=== PATIENT | male | born 1975 | race African-American/Black ===

== ENCOUNTER 2019-02-01 06:15 | Inpatient (IN) | payer SELFPAY ==
[~2019-02-01] VITALS: Ht 182.9 cm; Wt 130.2 kg
[~2019-02-01 06:15] MED LIST: ZES10 PO
[2019-02-01 06:25] VITALS: Ht 182.9 cm; Wt 130.2 kg
--- NOTE | 2019-02-01 08:05 | NUR ---
PT WALKED IN TO ER BED 7 FOR C/O LEFT ANKLE PAIN X 4 DAYS, STATES "IT'S MY GOUT" DENIES ACUTE INJURY OR EATING RED MEAT/SEAFOOD FOR A WHILE. SLIGHT SWELLING NOTED, PEAL PULSES PRSENT. STATES HE TAKES INDOMETHACIN PRESCRIBED. STATES HE TAKES HIS ANTIHYPERTENSIVES LASTTAKEN THIS AM, CURENTLY BP 151/104. PAIN LEVEL 9/10. DR JOLLY IN ROOM FOR EXAM. TEACHING DONE ON BP CONTROL AND THENEED FOR A BPMACHINE AT HOME. WAIITNG FOR FURTHER ORDERS. SAFETY PRECAUTIONSIN PLACE, WILLCONT TO MONITOR. RESP EVEN AND UNALBORED, IN NAD. DENIES CP OR SOB.
--- NOTE | 2019-02-01 08:33 | NUR ---
MEDICATED ORDERED, WILL MONITOR FOR RELIEF.
[2019-02-01 09:01] LABS: BASOPHIL % 0.7 % (0-2); PLATELET COUNT 344 x10^3mcL (130-400); RED CELL DISTRIBUTION WIDTH 14.5 % (11.5-14.5)
[2019-02-01 09:08] LABS: CALCIUM 8.1 mg/dL (8.5-10.1); CARBON DIOXIDE 30.1 mmol/L (21-32); CREATININE SERUM 3.7 mg/dL (0.7-1.3)
[2019-02-01 09:13] LABS: BILIRUBIN TOTAL 0.26 mg/dL (0.20-1.00); TOTAL PROTEIN, SERUM 7.5 g/dL (6.4-8.2)
[2019-02-01 09:14] LABS: ALBUMIN 3.1 g/dL (3.4-5.0)
--- NOTE | 2019-02-01 09:55 | NUR ---
DR AMEZQUITA INFORMED OF CRITICAL TROPONIN 0.142
[2019-02-01] MEDS ORDERED: HYDRALAZINE HCL25 MG (09:58)
[2019-02-01] MEDS ORDERED: METOPROLOL SUCC50 M2 PO (09:58)
[2019-02-01 11:49] LABS: microscopic required? YES; urine erythrocyte NEGATIVE (NEGATIVE)
--- NOTE | 2019-02-01 12:02 | NUR ---
SECOND SANDWICH AND JUICE GIVEN REQUESTED. PT SITTING UP IN BED, IN NAD.
[2019-02-01 12:23] LABS: AMPHETAMINE QUAL UR NONE DETECTED (See below)
--- NOTE | 2019-02-01 13:38 | NUR ---
REPORT GIVEN TO ALMAS LINARES, UPDATED ON STATUS, LABS AND VITALS. PT STABLE FOR TRANSFER. ALL BELONGINGS WITH PT.
[2019-02-01 14:31] VITALS: BP 183/116
--- NOTE | 2019-02-01 14:41 | NUR ---
RECEIVED PT FROM ER, PT ADMIT FOR UNCONTROLLED B/P, NONSTEMI, PT IS A/O X4, VERBAL RESPONSIVE, ABLE TO TELL WHAT HE NEEDS. LUNG SOUND CLEAR BILATERAL, NO COUGH, NO SOB, PT IS ON TELE 6, SBR, WITH PVC, PT DENY ANY CHEST PAIN, BOWEL SOUND PRESENT ALL 4 QUADRANTS, NO DISTENTION, NO TENDER. PEDAL PULSE PRESENT BOTH FEET, +1 EDEMA BLE, AND +1 LEFT ANKLE. IV AT LEFT HAND, NO LEAKING, NO INFILTRATION. ALL ADLS ASSIST, ALL NEED MET, CALL LIGHT IN REACH, WILL CONTINUE TO MONITOR.
[2019-02-01 16:54] VITALS: BP 138/87
--- NOTE | 2019-02-01 18:00 | NUR ---
TROPONIN LEVEL= 0.120. DR. CÉSAR MILAN. PT. DENIES ANY CHEST PAIN AT THIS TIME.
--- NOTE | 2019-02-01 18:15 | NUR ---
REMAINS IN STABLE CONDITION AT THIS TIME. WILL CONTINUE TO MONITOR.
--- NOTE | 2019-02-01 18:40 | NUR ---
DR. KIMBALL IN THE NURSING STATION. TROPONIN LEVEL (0.120) WAS REPORTED TO DR. KIMBALL. NO FURTHER ORDER RECEIVED AT THIS TIME.
--- NOTE | 2019-02-01 19:56 | NUR ---
PT. AWAKE, ALERT, ORIENTED X4. SITTING UP IN BED. DENIES HEADACHE OR DIZZINESS. BREATH SOUNDS CLEAR THROUGHOUT LUNG SOLIS, RESP. EVEN, UNLABORED,.NO SOB NOTED. PT. ON RA. NSR ON TELE #6. MODERATE PULSES TO BLE. +1 EDEMA NOTED. LT. ANKLE MORE EDEMATOUS THAN RLE. C/O PAIN WITH MOVEMENT AND WALKING/PRESSURE ON FEET. ABD. SOFT AND ROUND, BOWEL SOUNDS ACTIVE. DENIES ABD. PAIN, DENIES NAUSEA. IV SITE INTACT. CALL LIGHT WITHIN REACH.
[2019-02-01 20:59] VITALS: BP 125/88
--- NOTE | 2019-02-01 23:57 | NUR ---
PT. SLEEPING. NO C/O PAIN OR REQUEST FOR PAIN MEDICATION THUS FAR. CALL LIGHT REMAINS WITHIN REACH.
--- NOTE | 2019-02-02 05:20 | NUR ---
PT. AWAKE, SITTING UP AT BEDSIDE. DENIES ANY PAIN OR DISCOMFORT IN BLE AT THIS TIME. BLOOD PRESSURE ELEVATED, 144/103. EALRY DOSE OF NORVASC PO GIVEN. WILL MONITOR.
[2019-02-02 05:33] VITALS: BP 144/103
--- NOTE | 2019-02-02 06:14 | NUR ---
PT.'S BLOOD PRESSURE RECHECKED AFTER RECEIVING NORVAASC 5 MG PO. BLOOD PRESSURE 152/104. DR. WHATLEY MADE AWARE OF PRIOR BP LEVEL AND ABOUT PT. RECEIVING NORVASC EALRY. DR. WHATLEY ALSO MADE AWARE OF TROPONIN LEVEL OF 0.129. NO C/O CHESTPAIN THROUGHOUT NIGHT, SB ON MONITOR. DENIES ANY DISCOMFORT IN BLE AT THIS TIME. CALL LIGHT WITHIN REACH. WILL ENDORSE PT. CARE TO INCOMING NURSE.
--- NOTE | 2019-02-02 07:10 | NUR ---
RECEIVED PT FROM SAMANTA RN. PT AA/OX4 SITTING AT SIDE OF BED. REPORTS INTERMITTENT SOB WITH EXERTION, DENIES SOB AT THIS TIME. RR EVEN/UNLABORED. CHEST EXPANSION SYMMETRICAL. DENIES CHEST PAIN AT THIS TIME. NO N/V. NO BLAKE. NO DIZZINESS. PT CALM/COOPERATIVE. IV WNL TO LH, IV FLUIDS FLOWING. PT CALM/COOPERATIVE. INSTRUCTED TO USE CALL LIGHT TO CALL FOR ASSISTANCE PRN. VERBALIZED UNDERSTANDING. WILL CONTINUE TO MONITOR.
[2019-02-02 07:17] LABS: BASOPHIL % 1.3 % (0-2); PLATELET COUNT 359 x10^3mcL (130-400)
[2019-02-02 07:42] LABS: CALCIUM 8.5 mg/dL (8.5-10.1); CARBON DIOXIDE 27.2 mmol/L (21-32); CREATININE SERUM 3.5 mg/dL (0.7-1.3); MAGNESIUM 2.1 mg/dL (1.8-2.4); PHOSPHOROUS 3.8 mg/dL (2.5-4.9); POTASSIUM SERUM 4.2 mmol/L (3.5-5.1)
[2019-02-02 07:59] LABS: RED CELL DISTRIBUTION WIDTH 14.6 % (11.5-14.5)
[2019-02-02 09:07] VITALS: BP 146/93
--- NOTE | 2019-02-02 10:30 | NUR ---
PT SITTING AT SIDE OF BED. AA/OX4. NO S/S OF ACUTE DISTRESS. DENIES PAIN AT THIS TIME. NO SOB ON ROOM AIR. NO CHEST PAIN. CALM/COOPERATIVE. IV WNL TO LH. IV FLUIDS FLOWING. BED IN LOW POSITION. CALL LIGHT WITHIN REACH. WILL CONTINUE TO MONITOR.
--- NOTE | 2019-02-02 10:39 | NUR ---
Discount pharmacy card and list to low cost medical clinics given to patient by Sidney Vann.
[2019-02-02 12:45] VITALS: BP 152/102
--- NOTE | 2019-02-02 12:45 | NUR ---
BP ELEVATED, PT DENIES BLAKE. NO CHEST PAIN. DR. GAONA MADE AWARE. BP 152/102, HR RANGES BETWEEN 57-61. NO S/S OF ACUTE DISTRESS. WILL CONTINUE TO MONITOR.
[2019-02-02 17:47] VITALS: BP 154/104
--- NOTE | 2019-02-02 18:20 | NUR ---
PT SITTING AT SIDE OF BED. AA/OX4. DENIES PAIN. NO SOB ON ROOM AIR. DENIES CHEST PAIN. CALM/COOPERATIVE. BP ELEVATED, DR. GAONA AWARE. PT SCHEDULED TO RECEIVE BP MED AT 2100. NO BLAKE. NO DIZZINESS. NO N/V. NO S/S OF ACUTE DISTRESS. IV WNL TO LH, RUNNING AT 10CC/HR PER ORDER. PATENT. SIDE RAILS UP X2. BED IN LOW POSITION. CALL LIGHT WITHIN REACH. WILL ENDORSE TO ONCOMING SHIFT.
[2019-02-02 19:24] VITALS: BP 158/108
--- NOTE | 2019-02-02 19:54 | NUR ---
RECEIVED PT SITTING ON THE EDGE OF THE BED AAOX4, 2+EDEMA NOTED BILAT LOWER EXTR NOTED PEDAL PULSE +. PT DENY PAIN AT THE MOMENT , ON TELE NUMBER 6 THAT SHOWS NSR HR 68. PIV TO LH INTACT INFUSING WELL , NS AT 10ML/HR . CALL LIGHT WITHIN PT'S REACH , WILL CON;T TO MONITOR AND ASSIST PT WITH CARE .
--- NOTE | 2019-02-02 20:47 | NUR ---
BP 158/108 SCHEDULE MEDS GIVEN , WILL RE-CHECK BP IN 1HR .
[2019-02-02 23:00] VITALS: BP 136/95
--- NOTE | 2019-02-03 03:40 | NUR ---
I HAVE REVIEWED THE DATA COLLECTION BY [employer] (NAME):LAYO MONTILLA ENTERED ON (DATE/TIME): I CONCUR WITH THE DATA AND ANY EXCEPTIONS OR COMMENTS ARE LISTED BELOW:
[2019-02-03 04:56] VITALS: BP 159/108
--- NOTE | 2019-02-03 05:44 | NUR ---
BP 159/108 AMLODIPINE 5MG GIVEN ORDERED , DR SMALLWOOD AWARE
[2019-02-03 07:17] LABS: BASOPHIL % 0.9 % (0-2); PLATELET COUNT 374 x10^3mcL (130-400); RED CELL DISTRIBUTION WIDTH 14.4 % (11.5-14.5)
[2019-02-03 07:31] LABS: CALCIUM 8.6 mg/dL (8.5-10.1); CREATININE SERUM 3.3 mg/dL (0.7-1.3)
--- NOTE | 2019-02-03 07:36 | NUR ---
RECEIVED AWAKE, ALERT AND ORIENTED. SITTING AT THE EDGE OF THE BED. NO RESP. DISTRESS NOTED. NO C/O PAIN OR DISCOMFORT. BP SLIGHTLY ELEVETED. PT MEDICATED FOR HIGH BP BY NOC SHIFT NURSE. WILL CONT TO MONITOR.IVF INFUSING TO KVO AND SITE CLEAR. CALL LIGHT WITHIN REACH. WILL CONTNUE WITH PLAN OF CARE.
[2019-02-03 07:58] VITALS: BP 145/98
[2019-02-03] MEDS ORDERED: LIPI10 PO (09:17)
[2019-02-03] MEDS ORDERED: NOR5 PO (09:17)
[2019-02-03] MEDS ORDERED: GOOD SENSE ASPI81 M3 PO (09:19)
--- NOTE | 2019-02-03 12:01 | NUR ---
AM ROUNDS DONE BY DR. FUNG AND MEDICAL TEAM. PLAN TO DC HOME TODAY. PT AGREED WITH PLAN. IN NO RESP. DISTRESS. DENIES DISCOMFORT.
[2019-02-03 12:02] VITALS: BP 144/96
[2019-02-03 12:38] VITALS: BP 144/96
--- NOTE | 2019-02-03 14:45 | NUR ---
PT DC'D HOME IN NO RESP. DISTRESS. AWAKE, ALERT AND ORIENTED. VS WNL. NO C/O CHEST DISCOMFORT. HL REMOVED AND SITE CLEAR. DC INSTRUCTIONS REVIEWED WITH PT AND RX GIVEN. PERSONAL BELONGINGS TAKEN HOME.
== END 2019-02-03 14:40 | disposition home or self-care (01) | DRG 553 ==
LOC: ED 06:15 → DU 10:24
PROVIDERS: Emergency Medicine; ADMIT Internal Medicine
DX: M10.9 Gout, unspecified (principal); I21.A1 Myocardial infarction type 2; I16.1 Hypertensive emergency; N18.4 Chronic kidney disease, stage 4 (severe); N17.9 Acute kidney failure, unspecified; Z60.2 Problems related to living alone; E66.01 Morbid (severe) obesity due to excess calories; I12.9 Hypertensive chronic kidney disease with stage 1 through stage 4 chronic kidney disease, or unspecified chronic kidney disease; Z68.38 Body mass index [BMI] 38.0-38.9, adult; Z79.899 Other long term (current) drug therapy
CPT/HCPCS: 83880; C9113; G0378; J7030; J7512; Q0092

== ENCOUNTER 2019-02-11 21:10 | Emergency (ER) | payer SELFPAY ==
[~2019-02-11] VITALS: Ht 182.9 cm; Wt 127.0 kg
[~2019-02-11 21:10] MED LIST changes: +GOOD SENSE ASPI81 M3 PO; +HYDRALAZINE HCL25 MG; +LIPI10 PO; +METOPROLOL SUCC50 M2 PO; +NOR5 PO
[2019-02-11 21:16] VITALS: Ht 182.9 cm; Wt 127.0 kg
[2019-02-12 00:16] VITALS: BP 168/103
== END 2019-02-12 00:16 | disposition home or self-care (01) ==
LOC: ED 21:10
DX: M10.072 Idiopathic gout, left ankle and foot (principal); I10 Essential (primary) hypertension; E78.00 Pure hypercholesterolemia, unspecified
CPT/HCPCS: J1885

== ENCOUNTER 2019-07-19 14:03 | Emergency (ER) | payer BC ==
[~2019-07-19] VITALS: Ht 182.9 cm; Wt 122.5 kg
[2019-07-19 14:15] VITALS: BP 186/116; Ht 182.9 cm; Wt 122.5 kg
== END 2019-07-19 17:55 | disposition home or self-care (01) ==
LOC: ED 14:03
DX: M79.672 Pain in left foot (principal); M72.2 Plantar fascial fibromatosis
CPT/HCPCS: 82962

== ENCOUNTER 2020-02-29 17:02 | Emergency (ER) | payer SELFPAY ==
[~2020-02-29] VITALS: Ht 180.3 cm; Wt 120.2 kg
[2020-02-29 17:13] VITALS: Ht 180.3 cm; Wt 120.2 kg
[2020-02-29 18:35] VITALS: BP 155/81
== END 2020-02-29 18:35 | disposition home or self-care (01) ==
LOC: ED 17:02
DX: M10.9 Gout, unspecified (principal); M25.562 Pain in left knee; M25.572 Pain in left ankle and joints of left foot
CPT/HCPCS: J1885